=== PATIENT | male | born 1975 ===

== ENCOUNTER 2025-03-01 08:12 | Day surgery (SDC) | payer OTHER ==
[~2025-03-01] VITALS: Ht 175.3 cm; Wt 63.4 kg
== END 2025-03-01 10:55 | disposition home or self-care (01) ==
LOC: ORSCSDS 08:12
PROVIDERS: Surgery
PROC: 0DBL8ZX Excision of Transverse Colon, Via Natural or Artificial Opening Endoscopic, Diagnostic (ICD-10-PCS; principal; 2025-03-01 09:30)
DX: K64.4 Residual hemorrhoidal skin tags (principal); K62.89 Other specified diseases of anus and rectum; D12.3 Benign neoplasm of transverse colon; F32.9 Major depressive disorder, single episode, unspecified
CPT/HCPCS: 88305; J2704; J7120